=== PATIENT | female | born 1990 | race Caucasian/White ===

== ENCOUNTER → 2017-10-04 | Emergency (ER) | payer OTHER ==
[~2017-10-04] VITALS: Ht 177.8 cm; Wt 92.5 kg
[~2017-10-04] MED LIST: ACETAMINOPHEN-1 EAC1 PO; ADVAIR 250-501 EACH IH; ALBUTEROL SULF8.5 GM INH; CARE OT; CEPHALEXIN500 MG PO; CHEWABLE-VITE1 EACH PO; CIPRO500 MG PO; CLARITIN10 MG PO; CORTISPORIN EAR10 ML AS; CYCLOBENZAPRINE10 MG PO; DEPO SHOT INJ; HYCODAN SYRUP480 ML PO; IBUPROFEN400 MG PO; IBUPROFEN800 MG PO; KEFLEX500 MG PO; LEVAQUIN500 MG PO; LITHIUM CARBON300 M1 PO; MECLIZINE HCL25 MG PO; MICONAZOLE 7100 MG VAGINAL; MULTI VITAMIN1 EACH PO; NITROFURANTOIN100 MG PO; NORCO 5-325 TA1 EACH PO; ONDANSETRON ODT8 MG PO; PREDNISONE20 MG PO; PRENATA CHEWAB1 EACH PO; PRENATAL TABLE1 EAC2 PO; PRENATAL VITAM1 EACH PO; PROAIR HFA8.5 GM IH; PROMETHAZINE12.5 M1 PO; PROVENTIL HFA6.7 GM INH; PYRIDIUM100 MG PO; PYRIDIUM200 MG PO; TRIAMCINOLONE A15 GM TOP; TUSSIN DM COUG120 ML PO; TYLENOL WITH C1 EACH PO; VISTARIL25 MG PO; VOLTAREN75 MG PO; ZOFRAN ODT4 MG SL; ZOFRAN ODT8 MG PO; [UNRECOGNIZED DRUG - OTHER] PO
== END ==
LOC: ED 22:31
DX: S93.402A Sprain of unspecified ligament of left ankle, initial encounter (principal); Z90.49 Acquired absence of other specified parts of digestive tract; Z88.2 Allergy status to sulfonamides; Z88.0 Allergy status to penicillin; W01.0XXA Fall on same level from slipping, tripping and stumbling without subsequent striking against object, initial encounter
CPT/HCPCS: 73610; 99283

== ENCOUNTER 2017-12-16 22:20 | Emergency (ER) | payer OTHER ==
[~2017-12-16] VITALS: Ht 177.8 cm; Wt 83.5 kg
[2017-12-16] MEDS ORDERED: ONCE DAILY1 EACH PO (22:24)
== END 2017-12-16 23:37 | disposition home or self-care (01) ==
LOC: ED 22:20
DX: J20.9 Acute bronchitis, unspecified (principal); J45.909 Unspecified asthma, uncomplicated; Z88.2 Allergy status to sulfonamides; Z88.0 Allergy status to penicillin
CPT/HCPCS: 71046; 99282

== ENCOUNTER 2018-03-09 01:03 | Emergency (ER) | payer OTHER ==
[~2018-03-09] VITALS: Ht 177.8 cm; Wt 83.5 kg
[~2018-03-09 01:03] MED LIST changes: +ONCE DAILY1 EACH PO
== END 2018-03-09 03:57 | disposition home or self-care (01) ==
LOC: ED 01:03
DX: F31.9 Bipolar disorder, unspecified (principal); F68.8 Other specified disorders of adult personality and behavior; J45.909 Unspecified asthma, uncomplicated; Z88.2 Allergy status to sulfonamides; Z88.0 Allergy status to penicillin
CPT/HCPCS: 80053; 80176; 81001; 84703; 85025; 87077; 87088; 87186; 99283; G0480

== ENCOUNTER → 2018-04-26 | Emergency (ER) | payer OTHER ==
[~2018-04-26] VITALS: Ht 177.8 cm; Wt 83.5 kg
== END ==
LOC: ED 19:27
DX: N76.0 Acute vaginitis (principal); Z88.2 Allergy status to sulfonamides; Z88.0 Allergy status to penicillin
CPT/HCPCS: 81001; 84703; 99283

== ENCOUNTER 2019-01-07 10:18 | Emergency (ER) | payer SELFPAY ==
[~2019-01-07] VITALS: Ht 177.8 cm; Wt 83.5 kg
--- OUTSIDE RECORDS SUMMARY | 2019-01-07 10:22 | XMS ---
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 Doug has no Care Guidelines for this patient. [facility] VISIT COUNT (12 MO.) 3 [facility] TOTAL 3 NOTE: Visits indicate total known visits. 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
== END 2019-01-07 12:10 | disposition home or self-care (01) ==
LOC: ED 10:18
DX: H92.02 Otalgia, left ear (principal)

== ENCOUNTER 2019-08-09 12:46 | Emergency (ER) | payer SELFPAY ==
[~2019-08-09] VITALS: Ht 177.8 cm; Wt 83.5 kg
--- OUTSIDE RECORDS SUMMARY | 2019-08-09 12:48 | XMS ---
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 [facility] VISIT COUNT (12 MO.) 2 GM Jack TOTAL 2 NOTE: Visits indicate total known visits. ED/UCC VISIT TRACKING (12 MO.) 08/09/2019 12:46 [facility] TYPE: Emergency COMPLAINT: - BUG BITE 01/07/2019 10:19 [facility] TYPE: Emergency COMPLAINT: - L EAR PAIN/NONINJURY/LWOBS AT 1212 DIAGNOSES: - Otalgia, left ear INPATIENT VISIT TRACKING (12 MO.) No inpatient visits to display in this time frame [email or web address]
== END 2019-08-09 13:04 | disposition home or self-care (01) ==
LOC: ED 12:46
DX: L98.9 Disorder of the skin and subcutaneous tissue, unspecified (principal)